=== PATIENT | male | born 1960 | race Caucasian/White ===

== ENCOUNTER 2018-08-27 19:14 | Observation (INO) | payer OTHER ==
[2018-08-27 20:08] LABS: ABS Basophils 0 10^3/ul (0-0.2); ABS Eosinophils 0.1 10^3/ul (0-0.6); ABS Lymphocytes 2.1 10^3/ul (1.0-4.8); ABS Monocytes 0.6 10^3/ul (0-0.8); ABS Neutrophils 3.9 10^3/ul (1.5-7.7); ABS Nucleated RBC 0 10^3/ul; Eosinophil % 0.8 %; Hematocrit 41 % (36-46); Hemoglobin 13.5 g/dL (14.0-18.0); Lymphocyte % 31.2 %; Mean Corpuscular HGB Conc 33 g/dL (31-36); Mean Corpuscular Hemoglobin 28 pg (27-31); Mean Corpuscular Volume 86 fL (80-94); Mean Platelet Volume 7.7 fL (7.4-10.4); Nucleated Red Blood Cells % 0; Platelet Count 229 10^3/uL (150-450); Red Blood Count 4.74 10^6 /uL (4.18-5.48); Red Cell Distribution Width 14 % (10.5-15); White Blood Count 6.7 10^3/uL (3.5-10.8)
[2018-08-27 20:23] LABS: Albumin/Globulin Ratio 1.7 (1-3); BUN/Creatinine Ratio 17.3 (8-20); Calcium 8.8 mg/dL (8.6-10.3); EGFR African American 84.1 (>60); EGFR Non-African American 69.5 (>60); Globulin 2.3 g/dL (2-4); Potassium 4.1 mmol/L (3.5-5.0); Total Bilirubin 0.5 mg/dL (0.2-1.0); Total Protein 6.3 g/dL (6.4-8.9)
--- NOTE | 2018-08-27 20:41 | ED ---
HPI Chest Pain - HPI Summary HPI Summary: This patient is a 57 year old M brought in by corrections officers to [facility] accompanied by corrections officers with a chief complaint of L-sided radiating under scapula that began at 1030 this morning. The patient rates the pain 3/ 10 in severity. Symptoms aggravated by nothing. Symptoms alleviated by nothing. Patient reports SOB (resolved), nonproductive cough, numbness and tingling down L arm, dizziness, and lightheadedness. Pt denies any fever, chills, erythema of eyes, sore throat, abdominal pain, N/V, dysuria, hematuria, myalgia, edema, or rash. - History of Current Complaint Chief Complaint: EDChestPainROMI Time Seen by Provider: 08/27/18 20:31 Hx Obtained From: Patient Onset/Duration: Started Hours Ago, Atraumatic, Still Present Time of Onset: 10:30 Timing: Constant Initial Severity: Moderate Current Severity: Moderate Pain Intensity: 4 Pain Scale Used: 0-10 Numeric Chest Pain Location: Left Lateral Chest Pain Radiates: Yes Chest Pain Radiates To:: Other - "Under sternum" Aggravating Factor(s): Nothing Alleviating Factor(s): Nothing Associated Signs and Symptoms: Positive: Other: - Positive SOB (resolved), nonproductive cough, numbness and tingling down L arm, dizziness, and lightheadedness. Negative any fever, chills, erythema of eyes, sore throat, abdominal pain, N/V, dysuria, hematuria, myalgia, edema, or rash. - Allergy/Home Medications Allergies/Adverse Reactions: Allergies Allergy/AdvReac Type Severity Reaction Status Date / Time No Known Allergies Allergy Verified 08/27/18 21:24 Home Medications: Home Medications Lipitor 20 MG* 20 mg PO DAILY 08/27/18 [History Confirmed 08/27/18] Trazodone HCl 100 mg PO BEDTIME 08/27/18 [History Confirmed 08/27/18] Zoloft 200 mg PO DAILY 08/27/18 [History Confirmed 08/27/18] PMH/Surg Hx/FS Hx/Imm Hx Previously Healthy: No Opthamlomology History: Denies: Hx Legally Blind EENT History: Denies: Hx Deafness Neurological History: Reports: Other Neuro Impairments/Disorders - Positive vertigo Infectious Disease History: No Infectious Disease History: Denies: Traveled Outside the [place] in Last 30 Days - Family History Known Family History: Positive: Other - Positive "leaky valve" - Social History Occupation: Unemployed Lives: Alone Review of Systems Negative: Fever, Chills Negative: Erythema Negative: Sore Throat Positive: Chest Pain Positive: Shortness Of Breath, Cough Negative: Abdominal Pain, Vomiting, Nausea Negative: dysuria, hematuria Negative: Myalgia, Edema Negative: Rash Neurological: Other - Positive Dizziness, Lightheadedness, and tingling Positive: Numbness All Other Systems Reviewed And Are Negative: Yes Physical Exam - Summary Physical Exam Summary: Constitutional: Well-developed, Well-nourished, Alert. (-) Distressed Skin: Warm, Dry HENT: Normocephalic; Atraumatic Eyes: Conjunctiva normal Neck: Musculoskeletal ROM normal neck. (-) JVD, (-) Stridor, (-) Tracheal deviation Cardio: Rhythm regular, rate normal, Heart sounds normal; Intact distal pulses; The pedal pulses are 2+ and symmetric. Radial pulses are 2+ and symmetric. (-) Murmur Pulmonary/Chest wall: Effort normal. (-) Respiratory distress, (-) Wheezes, (-) Rales, Costochondral tenderness at left 4 costochondral junction Abd: Soft, (-) tenderness, (-) Distension, (-) Guarding, (-) Rebound Musculoskeletal: (-) Edema Lymph: (-) Cervical adenopathy Neuro: Alert, Oriented x3 Psych: Mood and affect Normal Triage Information Reviewed: Yes Vital Signs On Initial Exam: Initial Vitals Temp Pulse Resp BP Pulse Ox 98.3 F 63 16 154/89 96 08/27/18 19:24 08/27/18 19:24 08/27/18 19:24 08/27/18 19:24 08/27/18 19:24 Vital Signs Reviewed: Yes Diagnostics - Vital Signs Vital Signs Temp Pulse Resp BP Pulse Ox 08/27/18 19:24 98.3 F 63 16 154/89 96 - Laboratory Lab Results: Lab Results 08/27/18 08/27/18 08/27/18 Range/Units 19:55 19:55 19:55 WBC 6.7 (3.5-10.8) 10^3/uL RBC 4.74 (4.18-5.48) 10^6 /uL Hgb 13.5 L (14.0-18.0) g/dL Hct 41 (36-46) % MCV 86 (80-94) fL MCH 28 (27-31) pg MCHC 33 (31-36) g/dL RDW 14 (10.5-15) % Plt Count 229 (150-450) 10^3/uL MPV 7.7 (7.4-10.4) fL Neut % (Auto) 58.5 % Lymph % (Auto) 31.2 % Scurry % (Auto) 9.1 % Eos % (Auto) 0.8 % Baso % (Auto) 0.4 % Absolute Neuts (auto) 3.9 (1.5-7.7) 10^3/ul Absolute Lymphs (auto) 2.1 (1.0-4.8) 10^3/ul Absolute Monos (auto) 0.6 (0-0.8) 10^3/ul Absolute Eos (auto) 0.1 (0-0.6) 10^3/ul Absolute Basos (auto) 0 (0-0.2) 10^3/ul Absolute Nucleated RBC 0 10^3/ul Nucleated RBC % 0 Sodium 136 (135-145) mmol/L Potassium 4.1 (3.5-5.0) mmol/L Chloride 106 (101-111) mmol/L Carbon Dioxide 26 (22-32) mmol/L Anion Gap 4 (2-11) mmol/L BUN 19 (6-24) mg/dL Creatinine 1.10 (0.67-1.17) mg/dL Est GFR ( Amer) 84.1 (>60) Est GFR (Non-Af Amer) 69.5 (>60) BUN/Creatinine Ratio 17.3 (8-20) Glucose 90 (70-100) mg/dL Lactic Acid 0.6 (0.5-2.0) mmol/L Calcium 8.8 (8.6-10.3) mg/dL Total Bilirubin 0.50 (0.2-1.0) mg/dL AST 16 (13-39) U/L ALT 13 (7-52) U/L Alkaline Phosphatase 73 (34-104) U/L Troponin I 0.00 (<0.04) ng/mL Total Protein 6.3 L (6.4-8.9) g/dL Albumin 4.0 (3.2-5.2) g/dL Globulin 2.3 (2-4) g/dL Albumin/Globulin Ratio 1.7 (1-3) Result Diagrams: 08/27/18 19:55 08/27/18 19:55 Lab Statement: Any lab studies that have been ordered have been reviewed, and results considered in the medical decision making process. - Radiology CXR Radiology Interpretation Completed By: ED Physician Summary of Radiographic Findings: CXR reveals, per ED physician, no acute disease - EKG 1931 Cardiac Rate: NL EKG Rhythm: Sinus Rhythm - [address] Segment: Normal Summary of EKG Findings: An EKG taken at 1931 reveals normal sinus rhythm at 151 BPM with no STEMI. Chest Pain Course/Dx - Course Course Of Treatment: This patient is a 57 year old M brought in by corrections officers [facility] by [facility] officers with a chief complaint of L-sided radiating under scapula that began at 1030 this morning. Physical Exam Findings: Costochondral tenderness at the left 4th costochondral junction. An EKG taken at 1931 reveals normal sinus rhythm at 151 BPM with no STEMI. CXR reveals, per ED physician, no acute disease. Bloodwork obtained. Consult with Dr. Salazar (hospitalist) at 2155. He agrees to admit the patient for further evaluation. The patient is agreeable with this plan. - Diagnoses Provider Diagnoses: Chest pain, unspecified - Provider Notifications Discussed Care Of Patient With: Fidel Salazar Time Discussed With Above Provider: 21:55 Instructed by Provider To: Other - Consult with Dr. Salazar (hospitalist) at 2155. He agrees to admit the patient for further evaluation. Discharge - Sign-Out/Discharge Documenting (check all that apply): Patient Departure - Admit to [facility] Patient Received Moderate/Deep Sedation with Procedure: No - Discharge Plan Condition: Stable Disposition: ADMITTED TO [facility] Referrals: Solange Berg [Primary Care Provider] - - Attestation Statements Document Initiated by Scribe: Yes Documenting Scribe: Solange Herndon Provider For Whom Scribe is Documenting (Include Credential): Dr. Cyril Stauffer MD Scribe Attestation: Solange Harper, scribed for Dr. Cyirl Stauffer MD on 08/27/18 at 2200.
[2018-08-27] MEDS ORDERED: Nitroglycerin TAB 0.4 MG* 0.4 MG TAB SL ONE (21:36)
[2018-08-27] MEDS ORDERED: Enoxaparin(*) 40 MG/0.4 ML SYR SUBCUT SCH (23:45)
[2018-08-27] MEDS ORDERED: traZODone TAB* 100 MG PO SCH (23:45)
[2018-08-28] MEDS: Aspirin 81 mg CHEW TAB* 81 MG TAB.CHEW PO SCH ×2 (00:55→08:10)
--- NOTE | 2018-08-28 01:18 | ADMNOTE ---
Subjective Date of Service: 08/27/18 Interval History: HISTORY AND PHYSICAL PCP: MARISOL at [facility] CC: chest pain HPI: Patient is 57 year old man with history of tobacco abuse who developed left anterior chest pain, radiating to L scapula. Pain was 5/10 a worst, 3/10 in ER, and now 0/10. He still has occasional throbbing in LT anterior chest. Had some dyspnea, now resolved. He does have some tingling in LT arm. Denies nausea, vomiting, diaphoresis. Pain resolved w/ nitro X2 in ED. Denies respirophasic pain. Family History: Findings - Father w/ valvular disease, mother and sister alive and well Social History: Findings - Currently a prisoner at [place], , 3 children , from [place], smokes 5 cigs/day, denies alcohol or drug use Past Medical History: Findings - hyperlipidemia, one episode severe vertigo 1 year ago; PSH: LT orbital floor fracture, has "plate" in L cheek Review of Systems - Measurements Intake and Output: Intake and Output Last 24 Hours 08/25/18 08/26/18 08/27/18 08/28/18 06:59 06:59 06:59 06:59 Weight 81.647 kg - Review of Systems Constitutional Symptoms: Negative: Fever Dermatology: Positive: Normal HEENT: Positive: Normal Thyroid: Positive: Normal Pulmonary: Positive: Shortness of Breath Cardiology: Positive: Chest Pain, Shortness of Breath Negative: Swelling of Ankles, Syncope, Orthopnoea Gastroenterology: Positive: Normal Genital - Urinary: Positive: Normal Musculoskeletal: Positive: Joint Stiffness, Other - RT knee pain for months Endocrinology: Positive: Normal Hematologic/Lymphatic: Negative: Anemia Neurology: Positive: Normal Psychiatry: Positive: Normal Objective Active Medications: Atorvastatin Calcium (Lipitor*) 20 mg PO DAILY TROY Sertraline HCl (Zoloft*) 200 mg PO DAILY TROY Trazodone HCl (Desyrel Tab*) 100 mg PO BEDTIME TROY Last Admin: 08/28/18 00:55 Dose: 100 mg Vital Signs - 8 hr 08/27/18 08/27/18 08/27/18 19:24 20:34 20:35 Temperature 36.8 C Pulse Rate 63 66 Respiratory 16 8 17 Rate Blood Pressure 154/89 131/85 (mmHg) O2 Sat by Pulse 96 96 Oximetry 08/27/18 08/27/18 08/27/18 21:01 21:05 21:35 Temperature Pulse Rate 60 60 57 Respiratory 21 13 15 Rate Blood Pressure 144/76 121/77 (mmHg) O2 Sat by Pulse 96 96 95 Oximetry 08/27/18 08/27/18 22:01 22:05 Temperature Pulse Rate 58 66 Respiratory 9 17 Rate Blood Pressure 119/79 (mmHg) O2 Sat by Pulse 96 96 Oximetry Appearance: alert, no distress Eyes: No Scleral Icterus Ears/Nose/Mouth/Throat: Clear Oropharnyx Neck: NL Appearance and Movements; NL JVP Respiratory: Symmetrical Chest Expansion and Respiratory Effort, Clear to Auscultation Cardiovascular: NL Sounds; No Murmurs; No JVD Abdominal: NL Sounds; No Tenderness; No Distention, - - bilateral small inguinal hernias Lymphatic: No Cervical Adenopathy Extremities: No Edema Skin: No Rash or Ulcers Neurological: Alert and Oriented x 3 Lines/Tubes/Other Access: Clean, Dry and Intact Peripheral IV Nutrition: Taking PO's Result Diagrams: 08/27/18 19:55 08/27/18 19:55 Additional Lab and Data: Laboratory Tests 08/27/18 08/27/18 08/27/18 19:55 19:55 23:33 Glucose 90 Lactic Acid 0.6 Troponin I 0.00 0.00 Albumin 4.0 Diagnostic Imaging: Chest X-Ray: negative EKG Data: Normal sinus rhythm, normal axis, no ischemic ST/T-wave changes Assess/Plan/Problems-Billing Assessment: 57 year old man with atypical chest pain, relieved by nitroglycerin. - Patient Problems (1) Atypical chest pain Current Visit: Yes Status: Acute Priority: Medium Code(s): R07.89 - OTHER CHEST PAIN SNOMED Code(s): 717451894 Comment: -Patient has risk factors for CAD including hyperlipidemia, tobacco abuse -Will observe on telemetry, follow troponins -Started ASA 81 qd to prevent [place] -Stress test arranged for tomorrow AM (2) Hyperlipemia Current Visit: Yes Status: Acute Priority: Medium Code(s): E78.5 - HYPERLIPIDEMIA, UNSPECIFIED SNOMED Code(s): 28734694 Comment: -Continue Lipitor (3) Inguinal hernia bilateral, non-recurrent Current Visit: Yes Status: Acute Priority: Medium Code(s): K40.20 - BI INGUINAL HERNIA, W/O OBST OR GANGRENE, NOT SPCF RECUR SNOMED Code(s): 03090620 Comment: -Patient should avoid activities at [employer] that exacerbate hernias Status and Disposition: observation
[2018-08-28] MEDS ORDERED: Sertraline* 100 MG TAB PO SCH (09:00)
[2018-08-28] MEDS ORDERED: Atorvastatin* 20 MG TAB PO SCH (09:00)
[2018-08-28 13:21] VITALS: BP 126/72
--- NOTE | 2018-08-29 07:30 | DS ---
DISCHARGE SUMMARY: DATE OF ADMISSION: 08/27/18 DATE OF DISCHARGE: 08/28/18 PRIMARY CARE PROVIDER: Solange Berg NP. She is at [facility]. ATTENDING PHYSICIAN: Dr. Jeremiah Churchill* (dictated by Sonja Romero NP). PRIMARY DIAGNOSIS: Atypical chest pain, presumed noncardiac. SECONDARY DIAGNOSIS: Hyperlipidemia. STUDIES WHILE IN THE HOSPITAL: 1. EKG on 08/27/18 shows normal sinus rhythm with a rate of 60. QTc 451. No ischemic changes. 2. Chest x-ray on 08/27/18 reads as no active cardiopulmonary disease. 3. Non-nuclear exercise stress test on 08/28/18 reads as [id number] exercise tolerance (the patient had inguinal hernia discomfort). No chest discomfort elicited. Low risk Castle score, regular exercise stress test. HISTORY OF PRESENT ILLNESS AND HOSPITAL COURSE: Mr. Bah is a 57-year-old male with past medical history of hyperlipidemia, who presented to the emergency room on 08/27/18 with complaint of chest pain. Please see the history and physical by Dr. Salazar for complete summary of the events leading up to this hospitalization. In short, the patient resides at [facility]. He developed chest pain on the day of presentation, rating the pain 5/10 at the worst. He also reported radiation to the left scapula and tingling in his left arm. He denied nausea, vomiting, or diaphoresis. He received 2 nitro in the ED and had resolution of his pain. He was admitted by the hospitalist service. The patient had 3 negative troponins of 0.00. His lab work was unremarkable. Vital signs were stable and he was monitored on telemetry overnight. He did not have any additional chest pain. He underwent an exercise stress test this morning with results noted above, but he was noted to be low risk. I went and spoke with the patient, and on my arrival, the patient reported that after the stress test he had some pain in his left chest which he rate as 3/10, similar to the pain he experienced yesterday though without radiation. At this point, the etiology of his chest pain is unclear. It is very unlikely to be a cardiac source as he has had 3 negative troponins, a normal EKG, and a negative exercise stress test. I have discussed this with the patient. It is possible that this pain is musculoskeletal, costochondritis, gastroesophageal reflux, or potentially malingering. When I advised the patient that I would be discharging him today, he asked if he could stay another night so that the guards he was with could have a break. This comment from him raises my suspicion for malingering. In the emergency room, there was documentation from the admitting provider regarding bilateral inguinal hernias. It is unclear if these hernias were palpated by the admitting provider. I did speak with a nurse at [facility], who advised that the patient has complained of these hernias in the past, though they have not been able to find any hernias on examination. Regardless at this point, I have advised that the provider there reassess for any inguinal hernias, and if there are inguinal hernias present, the patient should have activity restrictions to avoid activities that would exacerbate these hernias especially heavy lifting. The patient did report that he has a top bunk and he has difficulty getting on his top bunk. The nurse I spoke with at [facility] was in understanding of all the results and agreeable for the patient to return. Mr. Bah is stable for discharge today. Vital signs are as follows: Temp 98.2 , heart rate 78, respiratory rate 16, oxygen saturation 96% on room air, blood pressure 126/72. DISCHARGE MEDICATIONS: New Medication: Aspirin 81 mg p.o. daily. Continued Medications: 1. Atorvastatin 20 mg p.o. daily. 2. Trazodone 100 mg p.o. at bedtime. 3. Sertraline 200 mg p.o. daily. DISCHARGE PLAN: Mr. Bah will be discharged back to [facility]. Activity will be as tolerated, though I have advised that he should be able to take frequent breaks during any physical activity especially if he experiences any chest pain. If he does experience any chest pain, he should be allowed to rest at his discretion and should not resume any activity until chest pain has resolved. Though as I noted earlier, there is no clear evidence of any myocardial ischemia. I have also advised that it would be beneficial for the patient to have a bottom bunk. Diet will be regular as tolerated. Medications are as noted above. The patient has been placed on low-dose aspirin daily due to his risk factors of tobacco use and hyperlipidemia. He can continue his other usual medications as noted above. He will need to follow up with a nurse practitioner at [facility] and the nurse I spoke with advised that that would be within the next 1 to 2 days. He should return to the hospital or nearest emergency room for any worsening of symptoms, shortness of breath, lightheadedness, dizziness, chest discomfort, high fevers, chills, night sweats , loss of consciousness, or any other worrisome signs or symptoms. DISCHARGE CONDITION: Stable. DISCHARGE DISPOSITION: [facility]. This is a summarized report of a complex medical history and hospital stay. For further details, please see the entire medical record. TIME SPENT: Approximately 45 minutes was spent on this discharge. SONJA ROMERO NP [id number]/[facility] #: [id number] MARIE
== END 2018-08-28 18:40 ==
LOC: ED 19:14 → EEVIPCON 23:44 → MEDTELE 23:44
PROVIDERS: ADMIT Internal Medicine; ATTEND Internal Medicine
DX: R07.89 Other chest pain (principal); E78.5 Hyperlipidemia, unspecified; Z79.82 Long term (current) use of aspirin; R42 Dizziness and giddiness
CPT/HCPCS: 36415; 71045; 80053; 83605; 84484; 85025; 93005; 93017; 96372; 99284; A9270-GY; G0378; J1650